=== PATIENT | female | born 1955 | race Caucasian/White ===

== ENCOUNTER 2016-06-20 07:56 | Day surgery (SDC) | payer OTHER ==
[~2016-06-20] VITALS: Ht 157.5 cm; Wt 61.4 kg
[~2016-06-20 07:56] MED LIST: DULO20CA30 PO; FentaNYL CITRATE-PF 100 MCG/2 ML VIAL IVP ONE; GABA-531 PO; INSNOV SQ; MIDAZOLAM HCL 2 MG/2 ML VIAL IVP ONE; PARO20TA24 PO; PRAV40 PO; PREG75 PO; RANI150T7 PO; RISP1 PO; ZOLP5 PO
[2016-06-20] MEDS ORDERED: RINGERS SOLUTION,LACTATED 500 ML IV ONE ×2 (08:06→08:30)
[2016-06-20] MEDS ORDERED: DICLOFENAC SODIUM 0.1% 2.5 ML OPHTHALMIC SOLUTION ONE (08:07)
[2016-06-20] MEDS ORDERED: PHENYLEPHRINE HCL 2.5% 2 ML OPHTHALMIC SOLUTION ONE (08:07)
[2016-06-20] MEDS ORDERED: TETRACAINE HCL 0.5% 2 ML OPHTHALMIC SOLUTION ONE (08:07)
[2016-06-20] MEDS ORDERED: CYCLOPENTOLATE HCL 2% 2 ML OPHTHALMIC SOLUTION ONE (08:07)
[2016-06-20] MEDS ORDERED: GATIFLOXACIN 0.5% 2.5 ML OPHTHALMIC SOLUTION ONE (08:07)
[2016-06-20] MEDS: PHENYLEPHRINE HCL 2.5% 2 ML OPHTHALMIC SOLUTION OS SCH ×3 (08:30→08:51)
[2016-06-20] MEDS: GATIFLOXACIN 0.5% 2.5 ML OPHTHALMIC SOLUTION OS SCH ×3 (08:30→08:51)
[2016-06-20] MEDS: CYCLOPENTOLATE HCL 2% 2 ML OPHTHALMIC SOLUTION OS SCH ×3 (08:30→08:50)
[2016-06-20] MEDS: DICLOFENAC SODIUM 0.1% 2.5 ML OPHTHALMIC SOLUTION OS SCH ×3 (08:30→08:51)
[2016-06-20 08:32] LABS: GLUCOSE,POINT OF CARE 166 MG/DL (70-110)
[2016-06-20] MEDS ORDERED: TETRACAINE HCL 0.5% 2 ML OPHTHALMIC SOLUTION OS ONE ×2 (10:30→18:04)
[2016-06-20] MEDS ORDERED: ACETAMINOPHEN 325 MG TABLET PO PRN (10:30)
[2016-06-20] MEDS ORDERED: AcetaZOLAMIDE 250 MG TABLET PO ONE (10:30)
[2016-06-20] MEDS ORDERED: AcetaZOLAMIDE 250 MG TABLET ONE (10:55)
[2016-06-20] MEDS ORDERED: HYALURONATE SODIUM 12 MG/ML 0.8 ML SYRINGE IO ONE (18:04)
[2016-06-20] MEDS ORDERED: LIDOCAINE HCL/PF 1% 2 ML VIAL IM ONE (18:04)
[2016-06-20] MEDS ORDERED: POVIDONE-IODINE 10% 15 ML SOLUTION UD TP ONE (18:04)
[2016-06-20] MEDS ORDERED: EPINEPHrine 1:1,000 [1 MG/ML] AMP IM ONE (18:04)
[2016-06-20] MEDS ORDERED: MOXIFLOXACIN HCL 0.5% 3 ML OPHTHALMIC SOLUTION OS ONE (18:04)
[2016-06-20] MEDS ORDERED: TETRACAINE HCL VISCOUS 0.5% 0.6 ML OPHTHALMIC SOLUTION OS ONE (18:04)
[2016-06-20] MEDS ORDERED: BRIMONIDINE TARTRATE 0.15% 5 ML OPHTHALMIC SOLUTION OS ONE (18:04)
[2016-06-20] MEDS ORDERED: HYALURONATE SOD/CHONDROITIN SOD 0.5 ML VIAL IO ONE (18:04)
== END 2016-06-20 11:35 | disposition home or self-care (01) ==
LOC: SURGERY 07:56
PROVIDERS: ATTEND Ophthalmology
DX: E11.36 Type 2 diabetes mellitus with diabetic cataract (principal); E11.40 Type 2 diabetes mellitus with diabetic neuropathy, unspecified; K21.9 Gastro-esophageal reflux disease without esophagitis; F32.9 Major depressive disorder, single episode, unspecified; Z79.4 Long term (current) use of insulin; Z98.890 Other specified postprocedural states
CPT/HCPCS: 66984; 82962; 93005; C1780; J0171; J2250; J3010; J3490 ×2; J7120

== ENCOUNTER 2016-08-01 05:42 | Day surgery (SDC) | payer OTHER ==
[~2016-08-01] VITALS: Ht 157.5 cm; Wt 60.0 kg
[~2016-08-01 05:42] MED LIST changes: +ACETAMINOPHEN/CODEINE 300-30 MG TABLET PO PRN; +TETRACAINE HCL/PF 0.5% 4 ML OPHTHALMIC SOLUTION OD ONE
[2016-08-01] MEDS ORDERED: RINGERS SOLUTION,LACTATED 500 ML IV ONE ×2 (06:00→06:04)
[2016-08-01] MEDS ORDERED: TETRACAINE HCL/PF 0.5% 4 ML OPHTHALMIC SOLUTION ONE (06:04)
[2016-08-01] MEDS ORDERED: CYCLOPENTOLATE HCL 2% 2 ML OPHTHALMIC SOLUTION ONE (06:04)
[2016-08-01] MEDS ORDERED: DICLOFENAC SODIUM 0.1% 2.5 ML OPHTHALMIC SOLUTION ONE (06:04)
[2016-08-01] MEDS ORDERED: PHENYLEPHRINE HCL 2.5% 2 ML OPHTHALMIC SOLUTION ONE (06:05)
[2016-08-01] MEDS ORDERED: MOXIFLOXACIN HCL 0.5% 3 ML OPHTHALMIC SOLUTION ONE (06:05)
[2016-08-01 06:42] LABS: GLUCOSE,POINT OF CARE 136 MG/DL (70-110)
[2016-08-01] MEDS: CYCLOPENTOLATE HCL 2% 2 ML OPHTHALMIC SOLUTION OD SCH ×3 (06:45→06:57)
[2016-08-01] MEDS: DICLOFENAC SODIUM 0.1% 2.5 ML OPHTHALMIC SOLUTION OD SCH ×3 (06:46→07:07)
[2016-08-01] MEDS: PHENYLEPHRINE HCL 2.5% 2 ML OPHTHALMIC SOLUTION OD SCH ×3 (06:46→06:57)
[2016-08-01] MEDS: MOXIFLOXACIN HCL 0.5% 3 ML OPHTHALMIC SOLUTION OD SCH ×3 (06:46→07:07)
[2016-08-01] MEDS ORDERED: AcetaZOLAMIDE 250 MG TABLET PO ONE (07:30)
[2016-08-01] MEDS ORDERED: AcetaZOLAMIDE 250 MG TABLET ONE (08:43)
[2016-08-01] MEDS ORDERED: TETRACAINE HCL VISCOUS 0.5% 5 ML OPHTHALMIC SOLUTION OD ONE (09:00)
[2016-08-01] MEDS ORDERED: EPINEPHrine 1:1,000 [1 MG/ML] AMP IM ONE (12:00)
[2016-08-01] MEDS ORDERED: POVIDONE-IODINE 10% 15 ML SOLUTION UD TP ONE (12:00)
[2016-08-01] MEDS ORDERED: HYALURONATE SOD/CHONDROITIN SOD 0.5 ML VIAL IO ONE (12:00)
[2016-08-01] MEDS ORDERED: HYALURONATE SODIUM 12 MG/ML 0.8 ML SYRINGE IO ONE (12:00)
[2016-08-01] MEDS ORDERED: LIDOCAINE HCL/PF 1% 2 ML VIAL INJ ONE (12:00)
[2016-08-01] MEDS ORDERED: BRIMONIDINE TARTRATE 0.1% 5 ML OPHTHALMIC SOLUTION OD ONE (12:00)
[2016-08-01] MEDS ORDERED: MOXIFLOXACIN HCL 0.5% 3 ML OPHTHALMIC SOLUTION OD ONE (12:00)
== END 2016-08-01 09:25 | disposition home or self-care (01) ==
LOC: SURGERY 05:42
PROVIDERS: ATTEND Ophthalmology
DX: E11.36 Type 2 diabetes mellitus with diabetic cataract (principal); F41.9 Anxiety disorder, unspecified; Z79.4 Long term (current) use of insulin; Z98.890 Other specified postprocedural states
CPT/HCPCS: 66984; 82962; 93005; C1780; J2250; J3010; J7120; J0171; J3490